=== PATIENT | female | born 1950 | race American Indian/Alaskan Native ===

== ENCOUNTER 2020-01-01 09:42 | Outpatient (CLI) | payer MEDICARE ==
--- NOTE | 2020-01-01 10:48 | XRay Report ---
Left knee-3 views INDICATION: M25.562 PAIN IN LEFT KNEE. COMPARISON: None. IMPRESSION: No acute osseous or soft tissue abnormality. Mild tricompartmental degenerative arthr osis. Signer Name: Jose Suárez MD Signed: 01/01/2020 10:44 AM Workstation Name: [id number]
== END 2020-01-01 09:43 | disposition home or self-care (01) ==
LOC: XRAY 09:42
PROVIDERS: ATTEND Orthopaedic Surgery
DX: M17.12 Unilateral primary osteoarthritis, left knee (principal)